=== PATIENT | male | born 1985 | race Caucasian/White ===

== ENCOUNTER → 2019-07-26 10:48 | Outpatient (BNVA) | payer MEDICAID, SELFPAY | PROVIDERS: Family Provider Registered Nurse; Referring Provider Dermatology; Visit Provider Otolaryngology | DX: J32.9 Chronic sinusitis, unspecified (principal); J34.2 Deviated nasal septum; J34.3 Hypertrophy of nasal turbinates; K21.9 Gastro-esophageal reflux disease without esophagitis | CPT/HCPCS: 99203; 99214 ==

== ENCOUNTER 2019-08-06 09:02 | Outpatient (CLI) | payer MEDICAID, SELFPAY ==
--- NOTE | 2019-08-06 10:00 | CT_ITS ---
WS: [id number] CT PARANASAL SINUSES HISTORY: chronic sinusitis TECHNIQUE: Contiguous 2.5 mm axial images obtained through the sinuses. Images are reconstructed in s agittal and coronal planes. All CT scans at [facility] use at least one of these dose opt imization techniques: automated exposure control; mA and/or kV adjustment per patient size (includes targeted exams where dose is matched to clinical indication); or iterative reconstruction. DLP: 607.8 mGy.cm COMPARISON: None available. Frontal sinuses: Normal. Sphenoid sinus: Well pneumatized sphenoid sinuses. There are small bony septum within the sphenoid ai r cells. Ethmoid sinuses: Very small amount mucoperiosteal thickening in the posterior LEFT ethmoid air cells. Maxillary sinus: No air-fluid levels. There is a soft tissue nodule extending Inferiorly from the floor the LEFT orbit measuring 14 x 9 mm. Consistent with a small polyp or mucous retention cyst. Ostiomeatal unit: Widely patent. Very slight deviation of the nasal septum to the LEFT with a small 3 mm bony spur to the LEFT. Orbits and globes and soft tissues are normal. CT/CT sinus wo con* [id number] IMPRESSION: 1. Minimal mucoperiosteal thickening in the posterior LEFT ethmoid air cell. 2. Widely patent ostiomeatal units. 3. Minimal nasal septal deviation to the LEFT.
== END 2019-08-06 09:03 | disposition home or self-care (01) ==
LOC: CT 09:05
PROVIDERS: Family Provider Registered Nurse; PCP Nurse Practitioner Family; Visit Provider Otolaryngology
DX: J32.9 Chronic sinusitis, unspecified (principal); J34.2 Deviated nasal septum
CPT/HCPCS: 70486

== ENCOUNTER → 2019-08-14 09:29 | Outpatient (BNVA) | payer MEDICAID, SELFPAY | PROVIDERS: Family Provider Registered Nurse; PCP Nurse Practitioner Family; Visit Provider Otolaryngology | DX: J32.0 Chronic maxillary sinusitis (principal); J34.2 Deviated nasal septum; J34.3 Hypertrophy of nasal turbinates; J32.9 Chronic sinusitis, unspecified; K21.9 Gastro-esophageal reflux disease without esophagitis | CPT/HCPCS: 96372; 99214 ==

== ENCOUNTER 2019-08-31 09:45 | Emergency (ER) | payer MEDICAID, SELFPAY ==
[2019-08-31 09:50] VITALS: BP 153/107; PULSE 115; RESP 18; TEMP 36.7; O2SAT 99; BMI 32.6
[2019-08-31 10:10] VITALS: O2SAT 96
--- NOTE | 2019-08-31 10:11 | XRR_ITS ---
PROCEDURE INFORMATION: Exam: XR Chest, 1 View Exam date and time: 08/31/2019 10:12 AM Age: 34 years old Clinical indication: Shortness of breath; Additional info: Cough/congestion TECHNIQUE: Imaging protocol: XR of the chest Views: 1 view. COMPARISON: CR Chest 1 [place] [id number] 01/11/2013 8:55 PM FINDINGS: Lungs: There is a streaky opacity along the medial right lung base. No other focal consolidation. Pleural space: No pleural effusion. No pneumothorax. Heart/Mediastinum: The cardiac silhouette measures upper limits of normal in size and may be accentuated by portable technique. Bones/joints: Unremarkable for technique. XR/XR chest 1V portable [id number] IMPRESSION: 1. Subtle streaky opacity along the medial right lung base, likely reflecting atelectasis. Early consolidation is possible.
--- NOTE | 2019-08-31 10:11 | ECG_ITS ---
Measurements Intervals Burr Rate: 81 P: -83 CO: 119 QRS: 37 QRSD: 102 T: 29 QT: 362 QTc: 421 Indeterminate rhythm with controlled ventricular response POSSIBLE LEFT ATRIAL ENLARGEMENT [-0.1mV P WAVE IN V1/V2] ABNORMAL RHYTHM ECG No previous ECG available for comparison Electronically Signed On 08-31-2019 13:45:20 CDT by Forest Desai M.D. [email or web address]
--- NOTE | 2019-08-31 10:12 | W.ED.GENADLT ---
HPI - General Adult General: Chief complaint: General Medical Stated complaint: left arm pain Time Seen by Provider: 08/31/19 10:11 Source: patient and family Mode of arrival: ambulatory Limitations: language barrier and altered mental status (pt is autisic/intellectually delayed) History of Present Illness: HPI narrative: Patient is a 34-year-old male who presents to ED today along with his mother for complaints of what he states is an episode of SVT that began around 3 AM this morning. Patient tells me he was born with a heart defect and has seen Dr. Desai previously for the SVT and has been on metoprolol succinate 100 mg daily. At some point he began having breakthrough symptoms and was seen by Dr. Desai's [facility] who prescribed him metoprolol tartrate 50mg that he could take if he became symptomatic. Patient states he gets side effects with the 50mg tab and doesn't like taking it. When asked about the side effect he states the last time he took it around 8pm he noticed in the middle of the night he was sweating. Mother states he has had sweating episodes previously while complaining of palpations (w/o taking the 50mg metoprolol). Patient does not report any pain in his chest currently. He is not having any difficulty breathing or shortness of breath. He currently is not having any palpitations. He states he is having some arm pain however states he often has bilateral and alternating arm pains. Patient also tells me he is having some pain in his abdomen. He reports as a child having his entire large intestine removed. Mother states his small intestine is attached to his rectum and thus chronically has loose stools. Patient reports one episode of dry heaving but no active vomiting. He has not noticed much difference in his stool quality or quantity. He has not been running fevers. He continues to eat and drink normally. Onset (ago): unknown (chronic; this episode occurred this morning) Location: chest Relieving factors: none Exacerbating factors: none Associated symptoms: Reports nausea; Deny chest pain, dyspnea, headache(s), malaise, rash, palpitations, syncope or vomiting Review of Systems Const: Denies: fever, chills, body aches, change in appetite, change in weight, fatigue or malaise Eyes: Denies: change in vision or blurry vision ENMT: Denies: throat pain, enlarged tonsils or painful swallowing Card: Reports: irregular heart rhythm (reports racing heart rate ); Denies: chest pain, palpitations, edema, swelling of feet/ankles, lightheadedness, syncope, pre-syncope, shortness of breath on exertion, shortness of breath when lying down, leg pain with exertion or bluish discoloration of hands/feet Resp: Denies: shortness of breath, productive cough, pain on inspiration, coughing up blood or chest congestion GI: Reports: abdominal pain and nausea; Denies: vomiting, vomiting blood, heartburn/indigestion, diarrhea (chronically due to not having large intestine ), change in bowel habits, painful bowel movements, change in stool character, blood in stool, black tarry stool, mucus in stool, white/light colored stool or fatty stool : Denies: flank pain, difficulty urinating, painful urination, urinary frequency, urinary urgency or urinary hesitancy Musc: Denies: neck pain, back pain or joint pain Skin/Breast: Denies: rash Neuro: Denies: headache, numbness in extremities, weakness in extremities or changes in sensation PFSH ED PFSH: Social History Smoking and tobacco status: never smoked Alcohol intake: never History of recent travel: No Physical Exam Const: COMMON NORMALS: no apparent distress, oriented x3, healthy appearing, alert and well nourished EXAM LIMITATIONS: altered mental status (austic/intellectual delays-he answers most questions very well and thorough) HENMT: COMMON NORMALS: normocephalic and head/scalp atraumatic HEAD & SCALP: normocephalic and atraumatic Eye: COMMON NORMALS: conjunctivae normal and no scleral icterus CONJUNCTIVA: Yes conjunctivae normal Neck/C-Spine: COMMON NORMALS: full ROM, no lymphadenopathy and no meningeal signs Chest: COMMONS NORMALS: inspection of chest normal and palpation of chest normal Resp: COMMON NORMALS: normal respiratory effort and clear to auscultation bilaterally AUSCULTATION: clear to auscultation bilaterally Cardio: COMMON NORMALS: regular rate and regular rhythm RATE: regular rate RHYTHM: regular rhythm GI: COMMON NORMALS: normal to inspection, nondistended, normoactive bowel sounds, soft to palpation, non-tender, no hepatosplenomegaly and no masses PALPATION: Yes soft and Yes no hepatosplenomegaly : COMMON NORMALS: Yes no CVA tenderness BLADDER/KIDNEY EXAM: Yes no CVA tenderness Back/Pelvis: COMMON NORMALS: no CVA tenderness Extremity: COMMON NORMALS: normal to inspection Neuro: COMMON NORMALS: oriented x3 SENSORIUM/ORIENTATION: Yes alert MENINGEAL SIGNS: Yes no meningeal signs Skin: COMMON NORMALS: no rashes or lesions noted GENERAL SKIN EXAM: no rashes or lesions noted Course Vital Signs: Vital signs: Vital Signs Temperature 98.1 F 08/31/19 09:50 Pulse Rate 78 08/31/19 11:50 Respiratory Rate 17 08/31/19 11:50 Blood Pressure 138/84 08/31/19 11:50 Pulse Oximetry 96 08/31/19 11:50 MDM - General Adult MDM Narrative: Medical decision making narrative: Patient has been in normal sinus rhythm since arrival. First EKG performed was thought to be very inaccurate and had lots of artifact therefore this was repeated and confirmed that the sinus rhythm that I had seen on his monitor throughout his stay. Patient's symptoms of sweatiness that he feels is related to the 50mg metoprolol tartrate is most likely actually related to the SVT or unrelated altogether as mother states he has had these symptoms previously without taking the medication. He does state when he takes the medication it does seem to help with his palpitations therefore I think the benefits of continuing this would outweigh any side effects (if present). Mother states he has a cardiology appointment in approximately a week and a half that I recommend they keep and follow-up. I do not feel any changes to his medications are indicated at this time. Lab Data: Labs: Lab Results 08/31/19 08/31/19 08/31/19 Range/Units 10:20 10:20 10:20 WBC 10.9 H (4.0-10.0) 10^3/ uL RBC 5.27 (4.1-5.3) 10^6/u L Hgb 16.0 (11.7-16.6) g/dL Hct 46.4 (42.0-52.0) % MCV 88.0 (80-94) fL MCH 30.4 (28.0-34.0) pg MCHC 34.5 (30.0-36.0) g/dL RDW 11.7 L (12.1-15.1) % Plt Count 258 (130-400) 10^3/c mm MPV 10.5 H (7.4-10.4) fL Neut % (Auto) 72.6 % Lymph % (Auto) 18.1 % [place] % (Auto) 7.7 % Eos % (Auto) 0.6 % Baso % (Auto) 0.5 % Neut # (Auto) 7.9 H (1.8-7.7) 10^3/u L Lymph # (Auto) 2.0 (0.8-4.8) 10^3/u L [place] # (Auto) 0.8 (0.2-0.9) 10^3/u L Eos # (Auto) 0.1 (0.0-0.8) 10^3/u L Baso # (Auto) 0.1 (0.0-0.1) 10^3/u L Nucleated RBC % (a uto) 0 % Nucleated RBCs # 0.0 /100WBC Sodium 136 (136-145) mmol/L Potassium 3.9 (3.5-5.1) mmol/L Chloride 100 (98-107) mmol/L Carbon Dioxide 22 (22-29) mmol/L Anion Gap 17.9 (5-19) BUN 12 (6-20) mg/dL Creatinine 0.7 (0.7-1.2) mg/dL GFR Calculation 127.6 (90-130) mL/min Glucose 107 (65-115) mg/dL Calculated Osmolal ity 279 L (285-295) mOsm/k g Calcium 9.9 (8.5-10.5) mg/dL Total Bilirubin 0.7 (0.15-1.2) mg/dL AST 19 (0-40) U/L ALT 22 (0-41) U/L Alkaline Phosphata se 56 (40-130) IU/L Troponin T Gen 5 n g/L 6 (0-15) ng/mL Total Protein 6.9 (6.6-8.7) g/dL Albumin 4.3 (3.5-5.2) g/dL Globulin 2.6 (1.3-4.6) g/dL Lipase 44 (13-60) U/L TSH 2.04 (0.27-4.20) uIU/ mL Urine Color (Yellow) Urine Appearance (CLEAR) Urine pH (5-7) Ur Specific Gravit y (1.005-1.030) Urine Protein (Negative) Urine Glucose (UA) (Normal) Urine Ketones (Negative) Urine Blood (Negative) Urine Nitrate (Negative) Urine Bilirubin (NEGATIVE) Urine Urobilinogen (Negative) mg/dL Ur Leukocyte Caity ase (Negative) 08/31/19 Range/Units 10:26 WBC (4.0-10.0) 10^3/ uL RBC (4.1-5.3) 10^6/u L Hgb (11.7-16.6) g/dL Hct (42.0-52.0) % MCV (80-94) fL MCH (28.0-34.0) pg MCHC (30.0-36.0) g/dL RDW (12.1-15.1) % Plt Count (130-400) 10^3/c mm MPV (7.4-10.4) fL Neut % (Auto) % Lymph % (Auto) % [place] % (Auto) % Eos % (Auto) % Baso % (Auto) % Neut # (Auto) (1.8-7.7) 10^3/u L Lymph # (Auto) (0.8-4.8) 10^3/u L [place] # (Auto) (0.2-0.9) 10^3/u L Eos # (Auto) (0.0-0.8) 10^3/u L Baso # (Auto) (0.0-0.1) 10^3/u L Nucleated RBC % (a uto) % Nucleated RBCs # /100WBC Sodium (136-145) mmol/L Potassium (3.5-5.1) mmol/L Chloride (98-107) mmol/L Carbon Dioxide (22-29) mmol/L Anion Gap (5-19) BUN (6-20) mg/dL Creatinine (0.7-1.2) mg/dL GFR Calculation (90-130) mL/min Glucose (65-115) mg/dL Calculated Osmolal ity (285-295) mOsm/k g Calcium (8.5-10.5) mg/dL Total Bilirubin (0.15-1.2) mg/dL AST (0-40) U/L ALT (0-41) U/L Alkaline Phosphata se (40-130) IU/L Troponin T Gen 5 n g/L (0-15) ng/mL Total Protein (6.6-8.7) g/dL Albumin (3.5-5.2) g/dL Globulin (1.3-4.6) g/dL Lipase (13-60) U/L TSH (0.27-4.20) uIU/ mL Urine Color Yellow (Yellow) Urine Appearance Clear (CLEAR) Urine pH 7 (5-7) Ur Specific Gravit y 1.010 (1.005-1.030) Urine Protein Neg (Negative) Urine Glucose (UA) Norm (Normal) Urine Ketones Negative (Negative) Urine Blood Neg (Negative) Urine Nitrate Negative (Negative) Urine Bilirubin Neg (NEGATIVE) Urine Urobilinogen Norm (Negative) mg/dL Ur Leukocyte Caity ase Negative (Negative) Imaging Data^: CXR: My impression: NAD EKG Data^: EKG 1: EKG interpretation date: 08/31/19 EKG interpretation time: 11:00 Interpretation: Sinus rhythm Rate [address] elevation or depression noted (This was second EKG performed as first EKG was thought to be inaccurate) Discharge Plan Discharge Patient Disposition: Home, Self-Care Clinical Impression: Palpitations Condition: Stable Prescriptions: No Action metoprolol succinate 100 mg capsule,sprinkle,ER 24hr 100 mg PO DAILY RF: 0 vitamin B complex [B Complex-Vitamin B12] Tablet 1 tab PO DAILY RF: 0 magnesium oxide 400 mg magnesium capsule 400 mg PO DAILY RF: 0 MO-ZYME FORTE tablet 1 tab PO DAILY RF: 0 multivitamin Tablet 1 tab PO DAILY RF: 0 buspirone 5 mg tablet 5 mg PO TID Qty: 90 RF: 0 polymyxin B sulf-trimethoprim 10,000 unit- 1 mg/mL drops 2 drop ophthalmic (eye) DAILY RF: 0 Discharge Orders: Discharge Order (Routine); Ordered 08/31/19 Ordered By: Irina Aragon Referrals: Wanda Barrett FNP [Primary Care Provider] - Activity Restrictions/Additional Instructions: Please follow up with your remote sensing technologist as scheduled. You may continue taking the extra 50mg metoprolol as needed for breakthrough symptoms. You may return to ED at any time for any concerns you may have. 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
[2019-08-31 10:39] LABS: Basophils # 0.1 10^3/uL (0.0-0.1); Basophils % 0.5 %; Eosinophils # 0.1 10^3/uL (0.0-0.8); Eosinophils % 0.6 %; Hematocrit 46.4 % (42.0-52.0); Lymphocytes % 18.1 %; Mean Corpuscular HGB Conc 34.5 g/dL (30.0-36.0); Mean Corpuscular Hemoglobin 30.4 pg (28.0-34.0); Mean Platelet Volume 10.5 fL (7.4-10.4); Monocytes # 0.8 10^3/uL (0.2-0.9); Monocytes % 7.7 %; Neutrophils # 7.9 10^3/uL (1.8-7.7); Neutrophils % 72.6 %; Nucleated Red Blood Cells % 0 %; Platelet Count 258 10^3/cmm (130-400); Red Blood Count 5.27 10^6/uL (4.1-5.3); Red Cell Distribution Width 11.7 % (12.1-15.1); White Blood Count 10.9 10^3/uL (4.0-10.0)
[2019-08-31 10:55] LABS: Troponin T (5th) Once 6 ng/mL (0-15)
[2019-08-31 11:02] LABS: Add Urine Microscopic? NO
[2019-08-31 11:03] LABS: Alanine Aminotransferase 22 U/L (0-41); Albumin Level 4.3 g/dL (3.5-5.2); Alkaline Phosphatase 56 IU/L (40-130); Anion Gap 17.9 (5-19); Aspartate Amino Transferase 19 U/L (0-40); Blood Urea Nitrogen 12 mg/dL (6-20); Calcium 9.9 mg/dL (8.5-10.5); Carbon Dioxide 22 mmol/L (22-29); Chloride 100 mmol/L (98-107); Globulin 2.6 g/dL (1.3-4.6); Glomerular Filtration Rate 127.6 mL/min (90-130); Glucose 107 mg/dL (65-115); Lipase 44 U/L (13-60); Osmolality Calculated 279 mOsm/kg (285-295); Potassium 3.9 mmol/L (3.5-5.1); Sodium 136 mmol/L (136-145); Thyroid Stimulating Hormone 2.04 uIU/mL (0.27-4.20); Total Bilirubin 0.7 mg/dL (0.15-1.2); Total Protein 6.9 g/dL (6.6-8.7)
[2019-08-31 11:14] LABS: Bilirubin Urine Neg (NEGATIVE); Blood Urine Neg (Negative); Glucose Urine UA Norm (Normal); Ketones Urine Negative (Negative); Leukocyte Esterase Urine Negative (Negative); Nitrate Urine Negative (Negative); Protein Urine Neg (Negative); Urine Appearance Clear (CLEAR); Urine Color Yellow (Yellow); Urobilinogen Urine Norm (Negative); pH Urine 7 (5-7)
[2019-08-31 11:50] VITALS: BP 138/84; PULSE 78; RESP 17; O2SAT 96
== END 2019-08-31 11:53 | disposition home or self-care (01) ==
PROVIDERS: Emergency Provider Physician Assistant; Family Provider Registered Nurse; PCP Registered Nurse
DX: R00.2 Palpitations (principal); M79.602 Pain in left arm; R94.31 Abnormal electrocardiogram [ECG] [EKG]
CPT/HCPCS: 12345; 36415; 71045; 80053; 81003; 83690; 84443; 84484; 85025; 93005; 99282; 99283; A9270

== ENCOUNTER → 2019-09-03 13:26 | Outpatient (BNVA) | payer MEDICAID, SELFPAY | PROVIDERS: Family Provider Registered Nurse; PCP Registered Nurse; Visit Provider Otolaryngology | DX: J32.0 Chronic maxillary sinusitis (principal); J32.9 Chronic sinusitis, unspecified; J34.2 Deviated nasal septum; J34.3 Hypertrophy of nasal turbinates; K21.9 Gastro-esophageal reflux disease without esophagitis | CPT/HCPCS: 96372; 99214; J3301 ==

== ENCOUNTER 2020-10-21 10:23 | Outpatient (CLI) | payer MEDICAID, SELFPAY ==
--- NOTE | 2020-10-21 10:32 | XR_ITS ---
WS: [id number] Thoracic spine, 2 views, 10/21/2020 Clinical Data: M54.6 - Pain in thoracic spine Comparison: None. Findings: No compression fractures are seen. The disc heights are normal. Minimal osteoarthritic spurring of the lower thoracic vertebral bodies is noted. The paravertebral re gions are normal. XR/XR thoracic spine 2V [id number] Impression: Minimal osteoarthritis of the lower thoracic vertebral bodies.
== END 2020-10-21 10:24 | disposition home or self-care (01) ==
LOC: RAD 10:29
PROVIDERS: PCP Registered Nurse; Visit Provider Registered Nurse
DX: M54.6 Pain in thoracic spine (principal); M47.814 Spondylosis without myelopathy or radiculopathy, thoracic region
CPT/HCPCS: 72070

== ENCOUNTER → 2020-11-30 11:26 | Outpatient (BNVA) | payer MEDICAID, SELFPAY | PROVIDERS: PCP Registered Nurse; Visit Provider Nurse Practitioner Family | DX: S30.861A Insect bite (nonvenomous) of abdominal wall, initial encounter (principal); W57.XXXA Bitten or stung by nonvenomous insect and other nonvenomous arthropods, initial encounter; I10 Essential (primary) hypertension; R51.9 Headache, unspecified; E78.5 Hyperlipidemia, unspecified; J32.0 Chronic maxillary sinusitis | CPT/HCPCS: 80053; 80061; 85025; 85651; 86618; 86666; 86757 ==

== ENCOUNTER → 2021-01-29 16:20 | Outpatient (BNVA) | payer MEDICAID, SELFPAY | PROVIDERS: PCP Registered Nurse; Visit Provider Surgery | DX: Z20.822 Contact with and (suspected) exposure to COVID-19 (principal) | CPT/HCPCS: 87635 ==

== ENCOUNTER 2021-02-04 08:43 | Day surgery (SDC) | payer MEDICAID, SELFPAY ==
[2021-02-02 11:18] VITALS: BMI 28.0
--- NOTE | 2021-02-04 09:05 | ANES.PREANE2 ---
Pre-Anesthetic Assessment Pre-Anesthetic Assessment: Height/Weight: Height 1.75 m Weight 86.183 kg Preop Diagnosis: history of polyps Proposed Procedure: Operation Date: 02/04/21 10:45 Proposed Procedures p EGD [id number] z86.010 d50.9(Not Applicable) - Nirmal Guevara MD s proctoscopy(Not Applicable) - Nirmal Guevara MD Familial anesthetic complications: none Was Beta Chichi taken within 24 hours: Yes Last intake: 02/02/21 solid meal 02/03/21 clear liquids 02/04/21 sip with medication 0830 Social: Social History: No alcohol and No tobacco Exam: Pre-Anes Outpt Exam: alert, oriented x 3, clear to auscultation bilaterally and regular rate & rhythm Airway: Submandibular: WNL Cervical ROM: WNL MP: 2 Dentition: Full History/ROS: No significant history except as noted Pulmonary: Pulmonary: None reported CV/HEM: CV/HEM: Arrythmia (SVT) and Palp Comments: recent visit with cardiology physician assistant, next appointment in 9 months. : : None reported Hepatic: Hepatic: None reported GI: GI: GERD Comments: previous colectomy. Metabolic: Metabolic: None reported Musc/skel: Musc/skel: None reported Neuropsych: Neuropsych: None reported Comments: Autism, communicates well. 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 SVT (supraventricular tachycardia) Surgical History History of colonoscopy with polypectomy 2018 History of wisdom tooth extraction Hx of colectomy Family History Grandfather CAD (coronary artery disease) Cancer Diabetes Hyperlipidemia Hypertension Brother CAD (coronary artery disease) Cancer Grandmother Diabetes Hypertension Father Diabetes Other Family history of premature coronary artery disease Denies family history of Bleeding disorder Social History (Reviewed 12/27/20 @ 21:00 by Leonie Kohli Smoking and tobacco status: never smoked Alcohol intake: never History of recent travel: No Data Anesthesia Cardiac Studies: No Data to Display
[2021-02-04 09:34] VITALS: BP 147/88; PULSE 97; RESP 18; TEMP 36.3; O2SAT 100
[2021-02-04] MEDS: sodium chloride 0.9% 1,000 ML 30 ML IV (10:00)
--- NOTE | 2021-02-04 10:33 | P.HP_ITS ---
Same Day Surgery H&P Indication for Procedure/HPI DATE OF PROCEDURE: February 04, 2021 CHIEF COMPLAINT/INDICATIONFOR SURGICAL PROCEDURE: gerd/jpolyposis syndrome PREOP DIAGNOSIS: panendoscopy PLANNED PROCEDRUE: Operation Date: 02/04/21 10:45 Proposed Procedures p EGD [id number] z86.010 d50.9(Not Applicable) - Nirmal Guevara MD s proctoscopy(Not Applicable) - Nirmal Guevara MD Medications/Allergies* Home Medications Medication Instructions Recorded Confirmed Type MO-ZYME FORTE 1 tab PO DAILY 07/11/19 02/04/21 History magnesium oxide 400 mg PO DAILY 07/11/19 02/04/21 History multivitamin 1 tab PO DAILY 07/11/19 02/04/21 History vitamin B complex 1 tab PO DAILY 07/11/19 02/04/21 History ascorbate calcium (vitamin C) 500 500 mg PO DAILY 12/15/20 02/04/21 History mg tablet Allergies/Adverse Reactions Allergy/AdvReac Type Severity Reaction Status Date / Time aspirin Allergy Severe GI Verified 02/02/21 11:15 doxycycline Allergy HEADACHE Verified 02/02/21 11:15 Current Medications: Generic Name Dose Route Start Last Admin Trade Name Freq PRN Reason Stop Dose Admin Sodium Chloride 1,000 mls @ 30 mls/hr 02/04/21 09:30 02/04/21 10:00 Sodium Chloride 0.9% IV 02/05/21 09:29 30 mls/hr .Q24H HEMANT Administration Pertinent History/Comorbid Conditions* Medical History (Updated 12/15/20 @ 15:57 by Nirmal Guevara MD) Allergic conjunctivitis of both eyes Asthma Autism Chronic sinusitis Deviated septum Essential hypertension GERD (gastroesophageal reflux disease) 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 SVT (supraventricular tachycardia) Surgical History (Updated 12/15/20 @ 09:03 by Nirmal Guevara MD) History of colonoscopy with polypectomy 2018 History of wisdom tooth extraction Hx of colectomy Family History (Updated 07/11/19 @ 13:32 by Stefania Wilkes RN) Diabetes Grandfather Grandmother Father CAD (coronary artery disease) Grandfather Brother Hyperlipidemia Grandfather Family history of premature coronary artery disease Cancer Grandfather Brother Hypertension Grandfather Grandmother Denies family history of Bleeding disorder Social History Smoking and tobacco status: never smoked Alcohol intake: never History of recent travel: No Pertinent Exam Findings alert, oriented x 3 and regular rate & rhythm Recommendations Surgery/Procedure today Coding Level of Care Code Acute Spinning Room Worker for [employer]
[2021-02-04 11:36] VITALS: BP 88/54; PULSE 89; RESP 18; TEMP 36.5; O2SAT 97
[2021-02-04 11:45] VITALS: BP 91/57; PULSE 88; RESP 18
--- NOTE | 2021-02-04 12:05 | ANE.PACU2 ---
Inpatient post-anesthesia follow up: Airway intact: Yes Vital signs: Temperature 97.7 F Pulse Rate 89 Respiratory Rate 18 Blood Pressure 88/54 Pulse Oximetry 97 Oxygen Delivery Me thod Oxygen Flow Rate Fraction of Inspir ed Oxygen Hydration adequate: Yes Mental status: Baseline
[2021-02-04 12:09] VITALS: BP 107/66
== END 2021-02-04 12:26 | disposition home or self-care (01) ==
PROVIDERS: PCP Registered Nurse; Visit Provider Surgery
PROC: 0DJ08ZZ Inspection of Upper Intestinal Tract, Via Natural or Artificial Opening Endoscopic (ICD-10-PCS; CPT 43235; principal; 2021-02-04 10:45)
PROC: 0DJD8ZZ Inspection of Lower Intestinal Tract, Via Natural or Artificial Opening Endoscopic (ICD-10-PCS; CPT 45330; 2021-02-04 10:45)
DX: Z86.010 Personal history of colon polyps (principal); D50.9 Iron deficiency anemia, unspecified; J45.909 Unspecified asthma, uncomplicated; F84.0 Autistic disorder; I10 Essential (primary) hypertension; K20.90 Esophagitis, unspecified without bleeding; K31.7 Polyp of stomach and duodenum
CPT/HCPCS: 43251; 45330; 88305; 96360; 96361; J2704; J7030

== ENCOUNTER 2021-03-01 07:58 | Outpatient (CLI) | payer MEDICAID, SELFPAY ==
[2021-03-01] MEDS: iohexol 300 mg/mL 50 mL Btl PO (09:03)
--- NOTE | 2021-03-01 09:30 | CT_ITS ---
WS: [id number] CT ABDOMEN PELVIS TECHNIQUE: Noncontrast CT of the abdomen and pelvis with coronal and sagittal reformatted images. Pat ient refused IV contrast. CLINICAL INFORMATION: K31.89 - Other diseases of stomach and duodenum COMPARISON: None. DLP: 950.[address] scans at [facility] use at least one of these dose optimization techniques: automated e xposure control; mA and/or kV adjustment per patient size (includes targeted exams where dose is matc hed to clinical indication); or iterative reconstruction. FINDINGS: Diffuse circumferential thickening involving the gastric fundus and GE junction. Polypoid type soft t issue lesion in the distal stomach extending into the first and second portion of the duodenum. 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 This measures approximately 6.2 x 4 .4 CM. Small bowel otherwise appears normal. Prior postoperative changes subtotal colectomy. Rectosigmoid co nstipation. Lung bases are well aerated. Noncontrast liver is normal. Enlargement of the right hepati c lobe with mild hepatomegaly. Mild splenomegaly. Noncontrast pancreas is normal. Adrenal glands are normal. No hydronephrosis in either kidney. Normal caliber abdominal aorta. Prominent lymph node at the GE junction measuring 9 mm. Prominent upper ab dominal lymph node measuring 8 mm. No periaortic or retroperitoneal lymphadenopathy. No inguinal lymp hadenopathy. CT/CT abdomen pelvis wo con [id number] IMPRESSION: 1. Polypoid soft tissue lesion involving the distal stomach extending into the duodenum measuring 4.4 x 6.2 CCM. This presumably corresponds to patient's kno wn stomach mass. Recommend upper endoscopy further evaluation. 2. Mild circumferential thickening involving the GE junction and proximal stom ach is nonspecific but can be seen with gastritis. Gastric rugal thickening. 3. A few prominent lymph nodes in the upper abdomen and GE junction measuring 8 to 9 mm. 4. Prior postoperative changes subtotal colectomy. Rectosigmoid constipation. 5. Mild hepatomegaly and splenomegaly.
== END 2021-03-01 07:59 | disposition home or self-care (01) ==
PROVIDERS: PCP Registered Nurse; Visit Provider Surgery
DX: K31.89 Other diseases of stomach and duodenum (principal); R16.2 Hepatomegaly with splenomegaly, not elsewhere classified; Z90.49 Acquired absence of other specified parts of digestive tract
CPT/HCPCS: 74176; 87635; Q9967

== ENCOUNTER → 2021-03-10 11:36 | Outpatient (BNVA) | payer MEDICAID, SELFPAY | PROVIDERS: PCP Registered Nurse; Visit Provider Registered Nurse | DX: E53.8 Deficiency of other specified B group vitamins (principal); D50.9 Iron deficiency anemia, unspecified | CPT/HCPCS: 80053; 82607; 85025 ==

== ENCOUNTER → 2021-04-07 11:14 | Outpatient (BNVA) | payer MEDICAID, SELFPAY | PROVIDERS: PCP Registered Nurse; Visit Provider Registered Nurse | DX: I10 Essential (primary) hypertension (principal) | CPT/HCPCS: 85007; 85025 ==

== ENCOUNTER → 2021-08-19 10:14 | Outpatient (BNVA) | payer MEDICAID, SELFPAY | PROVIDERS: PCP Registered Nurse; Visit Provider Registered Nurse | DX: D50.9 Iron deficiency anemia, unspecified (principal) | CPT/HCPCS: 85025 ==

== ENCOUNTER → 2021-08-26 08:30 | Outpatient (BNVA) | payer MEDICAID, SELFPAY | PROVIDERS: PCP Registered Nurse; Visit Provider Nurse Practitioner Family | DX: I47.1 Supraventricular tachycardia (principal); I10 Essential (primary) hypertension | CPT/HCPCS: 99213; 99214 ==

== ENCOUNTER → 2021-09-23 12:30 | Outpatient (BNVA) | payer MEDICAID, SELFPAY | PROVIDERS: PCP Registered Nurse; Visit Provider Internal Medicine | DX: I10 Essential (primary) hypertension (principal); I47.1 Supraventricular tachycardia; F84.0 Autistic disorder | CPT/HCPCS: 99213; 99214 ==

== ENCOUNTER → 2022-03-28 14:37 | Outpatient (BNVA) | payer MEDICAID, SELFPAY | PROVIDERS: PCP Registered Nurse; Visit Provider Internal Medicine | DX: I10 Essential (primary) hypertension (principal); I47.1 Supraventricular tachycardia; F84.0 Autistic disorder | CPT/HCPCS: 99213; 99214 ==

== ENCOUNTER → 2022-04-01 09:32 | Outpatient (BNVA) | payer MEDICAID, SELFPAY | PROVIDERS: PCP Registered Nurse; Visit Provider Surgery | DX: Q45.8 Other specified congenital malformations of digestive system (principal); I78.0 Hereditary hemorrhagic telangiectasia; D13.2 Benign neoplasm of duodenum | CPT/HCPCS: 99213 ==

== ENCOUNTER 2022-04-22 07:50 | Day surgery (SDC) | payer MEDICAID, SELFPAY ==
[2022-04-20 13:09] VITALS: BMI 30.4
[2022-04-22 09:15] VITALS: BP 129/74; PULSE 81; RESP 16; TEMP 36.6; O2SAT 95
[2022-04-22] MEDS: sodium chloride 0.9% 1,000 ML 30 ML IV (09:19)
--- NOTE | 2022-04-22 09:37 | ANES.PREANE2 ---
Pre-Anesthetic Assessment Height/Weight: Height 1.73 m Weight 90.718 kg Temp Pulse Resp BP Pulse Ox O2 Del Method 98 F 81 16 129/74 95 04/22/22 09:15 04/22/22 09:15 04/22/22 09:15 04/22/22 09:15 04/22/22 09:15 04/22/22 09:15 Preop Diagnosis: panendoscopy Operation Date: 04/22/22 09:45 Proposed Procedures p [id number] EGD [id number] Proctoscopy D13.2,Q45.8,I78,K21.9(Not Applicable) - DO samantha Swan Sigmoidoscopy(Not Applicable) - Saran Nagel DO Familial anesthetic complications: Pt BP got low last anesthetic Was Beta Chichi taken within 24 hours: Yes Was Clonidine taken within 24 hours: N/A Last intake: Intake Last Liquid Date 04/21/22 Last Liquid Time 21:00 Last Solid Date 04/21/22 Last Solid Time 16:00 Last Intake: 21:00 Social No alcohol and No tobacco Exam alert (Autism), oriented x 3, clear to auscultation bilaterally and regular rate & rhythm Airway Submandibular: within normal limits Cervical ROM: within normal limits Mallampati: Class II Dentition: full Pulmonary None reported CV/HEM Arrythmia (SVT) and Hypertension None reported Hepatic None reported GI Gastroesophageal Reflux Disease (gastric polyp) Metabolic Morbid Obesity Musc/skel Lower Back Pain and Osteoarthritis/DJD Neuropsych Deficit (Autism) Anesthetic Plan ASA status: 3 Anesthesia: MAC Risk of > 500 ml blood loss (7ml/kg in children): No Medications/Allergies Home Medications Medication Instructions Recorded Confirmed Last Taken Type magnesium oxide 400 mg PO DAILY 07/11/19 04/20/22 04/21/22 History multivitamin 1 tab PO DAILY 07/11/19 04/20/22 04/21/22 History ascorbate calcium (vitamin C) 500 500 mg PO DAILY 12/15/20 04/20/22 04/21/22 History mg tablet metoprolol succinate 100 mg 150 mg PO DAILY #135 tabs 03/28/22 04/22/22 04/21/22 21:00 Rx tablet,extended release 24 hr Allergies Allergy/AdvReac Type Severity Reaction Status Date / Time aspirin Allergy Severe GI Verified 04/20/22 13:07 doxycycline Allergy HEADACHE Verified 04/20/22 13:07 Current Medications Generic Name Dose Route Start Last Admin Trade Name Donald PRN Reason Stop Dose Admin Sodium Chloride 1,000 mls @ 30 mls/hr 04/22/22 08:30 04/22/22 09:19 Sodium Chloride 0.9% IV 04/23/22 08:29 30 mls/hr .Q24H HEMANT Administration PFSH Anesthesia Medical History Adenomatous duodenal polyp Allergic conjunctivitis of both eyes Ampullary adenoma Asthma Autism Chronic sinusitis Deviated septum Essential hypertension GERD (gastroesophageal reflux disease) 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 SVT (supraventricular tachycardia) Surgical History H/O esophagogastroduodenoscopy (02/04/21) History of colonoscopy with polypectomy (02/04/21) 2018 History of wisdom tooth extraction Hx of colectomy Family History Grandfather CAD (coronary artery disease) Cancer Diabetes Hyperlipidemia Hypertension Brother CAD (coronary artery disease) Cancer Grandmother Diabetes Hypertension Father Diabetes Other Family history of premature coronary artery disease Denies family history of Bleeding disorder Social History Smoking and tobacco status: never smoked Alcohol intake: never History of recent travel: No Data Anesthesia Cardiac Studies: No Data to Display
--- NOTE | 2022-04-22 09:41 | W.PM.OPSUD ---
Surgery/Procedure H&P Update DATE OF PROCEDURE: April 22, 2022 DATE H&P PERFORMED: 04/01/22 PREOP DIAGNOSIS: juvenille polyposis PLANNED PROCEDURE: Operation Date: 04/22/22 09:45 Proposed Procedures p [id number] EGD [id number] Proctoscopy D13.2,Q45.8,I78,K21.9(Not Applicable) - DO samantha Swan Sigmoidoscopy(Not Applicable) - Saran Nagel DO
[2022-04-22 10:05] VITALS: BP 115/71; PULSE 88; RESP 16; TEMP 36.1; O2SAT 97
[2022-04-22 10:22] VITALS: BP 128/84; PULSE 91; RESP 18; O2SAT 98
--- NOTE | 2022-04-22 15:06 | ANE.PACU2 ---
Inpatient post-anesthesia follow up: Airway intact: Yes Vital signs: Temperature 97 F Pulse Rate 91 Respiratory Rate 18 Blood Pressure 128/84 Pulse Oximetry 98 Oxygen Delivery Me thod Room Air Oxygen Flow Rate 2 Fraction of Inspir ed Oxygen Hydration adequate: Yes Nausea and vomiting: No Pain level: 1 Mental status: Baseline
== END 2022-04-22 10:33 | disposition home or self-care (01) ==
PROVIDERS: PCP Registered Nurse; Visit Provider Surgery
PROC: 0DJ08ZZ Inspection of Upper Intestinal Tract, Via Natural or Artificial Opening Endoscopic (ICD-10-PCS; CPT 43235; principal; 2022-04-22 09:45)
PROC: 0DJD8ZZ Inspection of Lower Intestinal Tract, Via Natural or Artificial Opening Endoscopic (ICD-10-PCS; CPT 45330; 2022-04-22 09:45)
DX: Q45.8 Other specified congenital malformations of digestive system (principal); D13.2 Benign neoplasm of duodenum; I78.0 Hereditary hemorrhagic telangiectasia; K21.9 Gastro-esophageal reflux disease without esophagitis; K62.1 Rectal polyp; F84.0 Autistic disorder; I10 Essential (primary) hypertension; E66.01 Morbid (severe) obesity due to excess calories; Z68.30 Body mass index [BMI] 30.0-30.9, adult
CPT/HCPCS: 43235; 45338; 88305; J2704; J7030

== ENCOUNTER → 2022-05-10 17:21 | Outpatient (BNVA) | payer MEDICAID, SELFPAY | PROVIDERS: PCP Registered Nurse; Visit Provider Surgery | DX: Z09 Encounter for follow-up examination after completed treatment for conditions other than malignant neoplasm (principal); Q45.8 Other specified congenital malformations of digestive system; I78.0 Hereditary hemorrhagic telangiectasia | CPT/HCPCS: 99212 ==

== ENCOUNTER → 2022-09-26 15:13 | Outpatient (BNVA) | payer MEDICAID, SELFPAY | PROVIDERS: PCP Registered Nurse; Visit Provider Internal Medicine | DX: I10 Essential (primary) hypertension (principal); I47.1 Supraventricular tachycardia; F84.0 Autistic disorder | CPT/HCPCS: 99213 ==

== ENCOUNTER → 2023-01-09 09:42 | Outpatient (BNVA) | payer MEDICAID, SELFPAY | PROVIDERS: PCP Registered Nurse; Visit Provider Transplant Surgery | DX: K31.89 Other diseases of stomach and duodenum (principal) | CPT/HCPCS: 80053; 85025 ==

== ENCOUNTER → 2023-03-27 15:09 | Outpatient (BNVA) | payer MEDICAID, SELFPAY | PROVIDERS: PCP Registered Nurse; Visit Provider Internal Medicine | DX: I10 Essential (primary) hypertension (principal); F84.0 Autistic disorder; I47.10 Supraventricular tachycardia, unspecified | CPT/HCPCS: 99214 ==

== ENCOUNTER → 2023-04-26 09:46 | Outpatient (BNVA) | payer MEDICAID, SELFPAY | PROVIDERS: PCP Registered Nurse; Visit Provider Nurse Practitioner Family | DX: Z90.3 Acquired absence of stomach [part of] (principal); Z79.899 Other long term (current) drug therapy | CPT/HCPCS: 82607; 82746 ==

== ENCOUNTER → 2023-12-25 14:17 | Outpatient (BNVA) | payer MEDICAID, SELFPAY | PROVIDERS: PCP Registered Nurse; Visit Provider Internal Medicine | DX: I10 Essential (primary) hypertension (principal); F84.0 Autistic disorder; I47.10 Supraventricular tachycardia, unspecified | CPT/HCPCS: 99214 ==

== ENCOUNTER 2024-02-12 11:38 | Outpatient (CLI) | payer MEDICAID, SELFPAY | END 2024-02-12 11:39 | disposition home or self-care (01) | LOC: LAB 11:40 | PROVIDERS: PCP Registered Nurse | DX: Q99.9 Chromosomal abnormality, unspecified (principal) | CPT/HCPCS: 36415; 82379 ==

== ENCOUNTER → 2024-04-09 16:26 | Outpatient (BNVA) | payer MEDICAID, SELFPAY | PROVIDERS: PCP Registered Nurse; Visit Provider Nurse Practitioner Family | DX: Z90.3 Acquired absence of stomach [part of] (principal); Q45.8 Other specified congenital malformations of digestive system; I78.0 Hereditary hemorrhagic telangiectasia; I10 Essential (primary) hypertension; D50.9 Iron deficiency anemia, unspecified; K21.9 Gastro-esophageal reflux disease without esophagitis; R10.84 Generalized abdominal pain | CPT/HCPCS: 74018; 81003 ==

== ENCOUNTER 2024-04-23 15:38 | Outpatient (CLI) | payer MEDICAID, SELFPAY ==
--- NOTE | 2024-04-23 16:45 | CT_ITS ---
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 Coronal and sagittal reformats are submi tted. All CT scans at [facility] use at least one of these dose optimization techniques: auto mated exposure control; mA and/or kV adjustment per patient size (includes targeted exams where dose is matched to clinical indication); or iterative reconstruction. DLP: 599.01 mGy.cm COMPARISON: 03/01/2021 Lower thorax: Lung bases are clear. Visualized heart is normal. No hiatal hernia. Liver: Normal size liver. No mass or bile duct dilatation. Gallbladder: Normal gallbladder. No pericholecystic fluid or cholelithiasis. No gallbladder wall thic [place]. Pancreas: Normal size and attenuation. Normal pancreatic duct. No pancreatitis or mass. Spleen: Normal. Adrenal glands: Normal. No mass. Right kidney: Normal size kidney with no mass or hydronephrosis. Left kidney: Normal size kidney with no mass or hydronephrosis. Aorta: Normal abdominal aorta, no aneurysm or atherosclerosis. No free fluid, intraperitoneal air or significant lymphadenopathy. GI tract: Postsurgical changes at the stomach. Previously described polypoid mass towards the antrum and duodenum is no longer present. No obstruction. Patient is also status post subtotal colectomy. Mi ld constipation distally. Scattered areas of mild wall thickening with luminal narrowing may be due t o peristalsis. Moderate stricture distal sigmoid colon with no obstruction. Abdominal wall: Negative. No hernia. Pelvis: Negative. Osseous structures: Unremarkable. CT/CT abdomen pelvis wo con [id number] IMPRESSION: 1. No acute abdominal or pelvic abnormalities are identified. 2. Prior gastric surgery. Previously described polypoid mass is no longer pres ent. 3. Status post subtotal colectomy. 4. No adenopathy or ascites. 5. Mild narrowing of the distal sigmoid. This may be due to spasm or early [place] plasm. For additional evaluation colonoscopy can be obtained. No obstruction.
== END 2024-04-23 15:39 | disposition home or self-care (01) ==
LOC: RAD 15:38
PROVIDERS: PCP Registered Nurse; Visit Provider Nurse Practitioner Family
DX: I78.0 Hereditary hemorrhagic telangiectasia (principal); Z90.3 Acquired absence of stomach [part of]; Q45.8 Other specified congenital malformations of digestive system; K56.690 Other partial intestinal obstruction; Z98.84 Bariatric surgery status; Z90.49 Acquired absence of other specified parts of digestive tract
CPT/HCPCS: 74176

== ENCOUNTER → 2024-12-23 13:03 | Outpatient (BNVA) | payer MEDICARE, MEDICAID, SELFPAY | PROVIDERS: PCP Nurse Practitioner Family; Visit Provider Internal Medicine | DX: I10 Essential (primary) hypertension (principal); F84.0 Autistic disorder; I47.10 Supraventricular tachycardia, unspecified | CPT/HCPCS: 99214 ==

== ENCOUNTER → 2025-02-24 09:48 | Outpatient (BNVA) | payer MEDICARE, MEDICAID, SELFPAY | PROVIDERS: PCP Nurse Practitioner Family; Visit Provider Nurse Practitioner Family | DX: I10 Essential (primary) hypertension (principal); D50.9 Iron deficiency anemia, unspecified; Z13.6 Encounter for screening for cardiovascular disorders; E55.9 Vitamin D deficiency, unspecified; Z98.890 Other specified postprocedural states; D13.5 Benign neoplasm of extrahepatic bile ducts | CPT/HCPCS: 80053; 80061; 81003; 82306; 82607; 82728; 83036; 83550; 84443; 85025 ==

== ENCOUNTER 2025-03-13 13:16 | Outpatient (CLI) | payer MEDICARE, MEDICAID, SELFPAY ==
--- NOTE | 2025-03-13 13:45 | MR_ITS ---
WS: [id number] MRI BRAIN WITHOUT CONTRAST HISTORY: Z87.81 - Personal history of (healed) traumatic fracture COMPARISON: None available. TECHNIQUE: Diffusion imaging, multiplanar T1, T2 and FLAIR imaging obtained. No evidence for acute infarct or hemorrhage. Mueller-white matter differentiation is normal. Normal hippocampal formations. No remote or acute infarcts or volume loss. Ventricles and extra-axial spaces are normal. No inferior displacement of cerebellar tonsils. The sella turcica and pituitary gland are unremarkable. Dural venous sinuses and [place] of [place] demonstrate no abnormality on this unenhanced studies. Paranasal sinuses: Clear. Mastoid air cells: Normal. Calvarium and scalp: Intact. MR/MR head wo con* [id number] IMPRESSION: 1. Unremarkable noncontrast MRI brain. 2. No prior infarcts or cerebral contusion. 3. No hemosiderin. 4. No significant atrophy.
== END 2025-03-13 13:17 | disposition home or self-care (01) ==
PROVIDERS: PCP Nurse Practitioner Family; Visit Provider Nurse Practitioner Family
DX: Z87.81 Personal history of (healed) traumatic fracture (principal); I10 Essential (primary) hypertension
CPT/HCPCS: 70551

== ENCOUNTER → 2025-03-19 13:48 | Outpatient (BNVA) | payer MEDICARE, MEDICAID, SELFPAY | PROVIDERS: PCP Nurse Practitioner Family; Visit Provider Podiatrist Foot & Ankle Surgery | DX: M79.671 Pain in right foot (principal); M79.672 Pain in left foot; M21.41 Flat foot [pes planus] (acquired), right foot; M21.42 Flat foot [pes planus] (acquired), left foot; M21.612 Bunion of left foot; M21.611 Bunion of right foot | CPT/HCPCS: 73630; 99204 ==